=== PATIENT | male | born 1950 | race Caucasian/White ===

== ENCOUNTER 2019-12-18 08:19 | Emergency (ER) | payer MEDICARE, OTHER ==
[~2019-12-18] VITALS: Ht 180.3 cm; Wt 85.7 kg
--- NOTE | 2019-12-18 08:30 | NUR ---
ARRIVAL PT ARRIVED TO ED AMBULATORY WITH C/O LEFT SECOND TOE REDNESS AND SWELLING FOR 3 DAYS. PT REPORTS BUMPING HIS TOE WHILE WORKING 5 DAYS AGO. BEDSIDE MONITORS APPLIED. VITAL SIGNS STABLE. BED IN LOW LOCKED POSITION. SPOUSE AT BEDSIDE.
[2019-12-18 08:38] VITALS: BP 151/80
[2019-12-18 08:39] VITALS: BP 151/80
[2019-12-18 08:44] VITALS: BP 151/80
--- NOTE | 2019-12-18 08:57 | ER.PDOC ---
General Chief Complaint: Extremities Stated Complaint: TOE REDNESS Time seen by MD: 08:54 Source: patient Exam Limitations: no limitations History of Present Illness Initial Comments Redness and swelling of left 2nd toe for past few days. He does not remember injury. He is a diabetic. No pain. Severity: mild Exacerbated By: nothing Relieved By: nothing Allergies: Coded Allergies: No Known Allergies (Unverified , 12/18/19) Past Medical History Medical History: arrhythmia, diabetes, high cholesterol, hypertension Surgical History: shoulder, tonsillectomy, other Social History Alcohol Use: none Drug Use: none Review of Systems Constitutional: no symptoms reported EENTM: no symptoms reported Respiratory: no symptoms reported Cardiovascular: no symptoms reported Gastrointestinal: no symptoms reported Musculoskeletal: see HPI Skin: see HPI All Other Systems: Reviewed and Negative Physical Exam General Appearance: Alert, No Apparent Distress Lower Extremity: swelling (mild left 2nd toe with redness. No warmth.) Joint Exam: joints nml, nml ROM, nml gait/weight bearing Vascular: no vascular compromise, pulses full/equal Neuro/Psych: sensation nml, motor nml, oriented x3, CN's nml as tested, mood/affect nml Back/Neck: nml inspection EENT: eyes inspection nml, ENT inspection nml, pharynx nml Respiratory: no resp distress, breath sounds nml CVS: reg rate & rhythm, heart sounds nml Abdomen: non-tender, no organomegaly, no bruit/mass Results/Orders Results/Orders Orders - PRIYANKA BARKER MD Cbc With Auto Diff (12/18/19 08:46) Basic Metabolic Panel (12/18/19 08:46) Xr Toe Lt (12/18/19 08:46) Vital Signs Date Time Temp Pulse Resp B/P (MAP) Pulse Ox O2 Delivery O2 Flow Rate FiO2 12/18/19 09:42 48 16 130/67 (88) 98 Room Air 12/18/19 08:44 98.1 55 16 151/80 (103) 98 Room Air 12/18/19 08:39 98.1 55 16 12/18/19 08:39 98.1 55 16 98 12/18/19 08:39 98.1 55 16 151/80 (103) 98 Room Air 12/18/19 08:38 98.1 58 14 151/80 (103) 98 Room Air Laboratory Tests Test 12/18/19 08:54 White Blood Count 7.3 10^3/uL (4.5-11.0) Red Blood Count 4.77 10^6/uL (4.50-5.90) Hemoglobin 14.5 g/dL (13.9-16.3) Hematocrit 41.7 % (37.0-53.0) Mean Corpuscular Volume 87.4 fL (78-100) Mean Corpuscular Hemoglobin 30.4 pg (26-34) Mean Corpuscular Hemoglobin Concent 34.8 g/dL (33-36.5) Red Cell Distribution Width 12.6 % (11.5-14.5) Platelet Count 208 10^3/uL (150-400) Mean Platelet Volume 11.6 fL (7.8-11.0) H Neutrophils (%) (Auto) 66.9 % (41.0-85.0) Lymphocytes (%) (Auto) 21.8 % (24.0-44.0) L Monocytes (%) (Auto) 7.3 % (5.0-12.0) Neutrophils # (Auto) 4.9 10^3/uL (1.8-7.7) Lymphocytes # (Auto) 1.58 10^3/uL1 (1.0-4.8) Monocytes # (Auto) 0.5 10^3/uL (0.3-0.8) Absolute Immature Granulocyte (auto 0.03 10^3 u/L (0-2) Absolute Eosinophils (auto) 0.2 10^3/uL (0.0-0.2) Immature Granulocytes % 0.40 % (0.00-0.50) Eosinophils % 3.0 % (0.0-5.0) Basophils % 0.6 % (0.0-0.2) H Basophils # 0.0 10^3/uL (0.0-0.1) Sodium Level 135 mmol/L (132-145) Potassium Level 5.1 mmol/L (3.6-5.2) Chloride Level 101.0 mmol/L (96-109) Carbon Dioxide Level 23.4 mmol/L (20.0-32) Glucose Level 287 mg/dL (70-110) H Blood Urea Nitrogen 31 mg/dL (7-18) H Creatinine 1.83 mg/dL (0.59-1.40) H Calcium Level 10.1 mg/dL (8.4-10.5) Anion Gap 15.7 Estimated GFR () 44.4 (>/=60) Est GFR (CKD-EPI)(Non-Afr [place]) 36.7 (>/=60) BUN/Creatinine Ratio 16.0 EKG/XRAY/CT/US XRAY Comments: No acute osseous abnormality of left 2nd toe ER DEPART Departure Time of Disposition: 09:46 Disposition: 01 HOME, SELF-CARE Impression: Primary Impression: Cellulitis Condition: Stable Additional Instructions: Clindamycin F/U with your PCP in 2-3 days Return to ED if worsening or concerns Duration or Time Spent with Pa: 20 min Problem Qualifiers Primary Impression: Cellulitis Site of cellulitis: extremity Site of cellulitis of extremity: toe Laterality: left Qualified Codes: L03.032 - Cellulitis of left toe PRIYANKA BARKER MD Dec 18, 2019 08:57
[2019-12-18 09:04] LABS: BASOPHIL % 0.6 % (0.0-0.2); EOSINOPHIL # 0.2 10^3/uL (0.0-0.2); LYMPHOCYTES # 1.58 10^3/uL1 (1.0-4.8); LYMPHOCYTES % 21.8 % (24.0-44.0); MEAN CORP HGB 30.4 pg (26-34); MONOCYTES # 0.5 10^3/uL (0.3-0.8); MONOCYTES % 7.3 % (5.0-12.0); NEUTROPHIL # 4.9 10^3/uL (1.8-7.7); NEUTROPHILS % 66.9 % (41.0-85.0); PLATELET COUNT 208 10^3/uL (150-400); RED CELL DISTRIBUTION WIDTH 12.6 % (11.5-14.5)
[2019-12-18 09:07] LABS: CALCIUM 10.1 mg/dL (8.4-10.5); CARBON DIOXIDE 23.4 mmol/L (20.0-32)
[2019-12-18 09:42] VITALS: BP 130/67
--- NOTE | 2019-12-18 09:45 | DIREP ---
PROCEDURE:XRAY TOE-LT COMPARISON:None. INDICATIONS:2nd toe pain FINDINGS: BONES:A small 4 x 2 mm bony density along the dorsal aspects of the head of the proximal phalanx of the right great toe as seen on the lateral view may represent an old injury. No acute fracture is seen in the toes. Especially in the 2nd toe. No dislocation, foreign body or erosive arthritis is seen. JOINTS:Mild degenerative narrowing of the interphalangeal joints without erosive changes. SOFT TISSUES:Normal. OTHER:No additional findings. CONCLUSION:No acute fracture is seen. 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 No fracture or dislocation in the left 2nd toe. Dictated by: Kevin Talamantes MD on 12/18/2019 at 09:42 AM
== END 2019-12-18 09:51 | disposition home or self-care (01) ==
LOC: ER 08:19
DX: E11.628 Type 2 diabetes mellitus with other skin complications (principal); L03.032 Cellulitis of left toe; I10 Essential (primary) hypertension; E78.00 Pure hypercholesterolemia, unspecified
CPT/HCPCS: 36415; 80048; 85025; 99284; 73660-LT